=== PATIENT | female | born 1960 | race Caucasian/White ===

== ENCOUNTER 2016-08-25 13:24 | Emergency (ER) | payer OTHER ==
[~2016-08-25] VITALS: Ht 157.5 cm; Wt 60.3 kg
--- NOTE | ~2016-08-25 | EKG ---
[place] [address] [facility] [place] [address] ELECTROCARDIOGRAM REPORT Name: BENY MONTEMAYORMirian Valdez Room #: [facility]P [facility] [id number] Admission: 08/25/16 Attend Phys: Discharge: 08/25/16 Date of : 64 Report #: [id number] THIS REPORT FOR: //name// [facility] ED Test Date: 2016-08-25 Test Time: 13:28:28 Pat Name: DAVIE MONTEMAYOR Department: Room: Gender: Small Business Sales Representative: BARB : 1960 Requested By: Steph Truong Order Number: [id number] MD: Henrique Rico Measurements Intervals Hallie Rate: 63 P: 44 [place]: 163 QRS: 32 QRSD: 106 T: 29 QT: 420 QTc: 430 Interpretive Statements Sinus rhythm Nonspecific T abnormalities, anterior leads No previous ECG available for comparison Electronically Signed On 08-26-2016 9:09:13 CDT by Henrique Rico [email or web address] <ELECTRONICALLY SIGNED> By: Henrique Rico MD, [facility] 08/26/16 [id number] Henrique Rico MD, FACC /EPI
[2016-08-25 13:54] LABS: HEMATOCRIT 39.7 % (37.0-47.0); HEMOGLOBIN 13.5 gm/dL (12.0-15.0); MCH 29.5 pg (26.0-34.0); MCV 86.7 fL (80.0-100.0); RBC 4.57 mil/uL (4.20-5.00); RDW 12.5 % (10.5-14.5); WBC 8.2 thou/uL (4.0-11.0)
[2016-08-25] MEDS ORDERED: NORVASC5 MG PO (14:00)
[2016-08-25] MEDS ORDERED: TOPROL XL25 MG PO (14:00)
[2016-08-25] MEDS ORDERED: LEXAPRO 10 MG T10 M1 PO (14:02)
[2016-08-25 14:07] LABS: ANION GAP 5 mmol/L (7-16); BUN 11 mg/dL (7-18); CALCIUM 8.7 mg/dL (8.5-10.1); CHLORIDE 107 mmol/L (98-107); CO2 27 mmol/L (21-32); CREATININE 0.7 mg/dL (0.6-1.3); GLUCOSE 102 mg/dL (70-99); SODIUM 139 mmol/L (136-145)
[2016-08-25 14:12] LABS: ALBUMIN 3.4 g/dL (3.4-5.0); ALKALINE PHOSPHATASE 85 U/L (46-116); SGOT 21 U/L (15-37); SGPT 18 U/L (30-65); TOTAL BILIRUBIN 0.5 mg/dL (<0.1-1.0); TROPONIN-I < 0.04 ng/mL (<0.04-0.07)
[2016-08-25 14:13] LABS: POTASSIUM 3.9 mmol/L (3.5-5.1)
[2016-08-25 14:45] LABS: URINE BILIRUBIN NEGATIVE (Negative); URINE BLOOD 2+ (Negative); URINE COLOR YELLOW; URINE GLUCOSE-RANDOM* NEGATIVE (Negative); URINE KETONES NEGATIVE (Negative); URINE NITRITE NEGATIVE (Negative); URINE PROTEIN (DIPSTICK) NEGATIVE (Negative); URINE SPECIFIC GRAVITY <= 1.005 (1.003-1.035); URINE UROBILINOGEN 0.2 E.U./dl (0.2-1.0)
[2016-08-25 14:51] LABS: CASTS None Seen /LPF (None Seen); SQUAMOUS >10 Many /LPF (0-3)
[2016-08-25 14:52] LABS: BACTERIA 1-9 Few /HPF (None Seen); CRYSTALS None Seen /LPF (None Seen); URINE RBC 0-2 Rare /HPF (0-2); URINE WBC 0-5 Rare /HPF (0-5)
[2016-08-25] MEDS ORDERED: NORFLEX100 MG PO (14:56)
[2016-08-25] MEDS ORDERED: NAPROSYN500 MG PO (14:56)
== END 2016-08-25 15:44 | disposition home or self-care (01) ==
LOC: ER 13:24
PROVIDERS: Physician Assistant
DX: R07.89 Other chest pain (principal); R31.9 Hematuria, unspecified; I10 Essential (primary) hypertension; F17.210 Nicotine dependence, cigarettes, uncomplicated